=== PATIENT | female | born 1945 | race Caucasian/White ===

== ENCOUNTER 2019-12-26 05:16 | Observation (INO) ==
[2019-12-19 13:17] LABS: Appearance,Urine CLEAR; Bacteria,Urine 0 /hpf (0); Bilirubin,Urine NEG (NEG); Color,Urine YELLOW; Culture Indicated,Urine NO; Glucose,Urine (UA) NEGATIVE (NEG); Ketones,Urine NEG (NEG); Leukocyte Esterase,Urine NEG /uL (NEG); Nitrate,Urine NEG (NEG); Protein,Urine NEG (NEG); Specific Gravity,Urine 1.011 (1.000-1.035); Urine Blood 0.03 mg/dL (<0.03); Urine RBC < 1 /hpf (0-1); Urine Squamous Epithelial Cell 1 /hpf (0-4); Urine WBC 1 /hpf (0-4); Urobilinogen,Urine NEG (NEG)
[2019-12-19 14:28] LABS: Basophils # (Auto) 0.08 K/mcL (0.00-0.30); Basophils % (Auto) 0.7 % (0.0-2.0); Eosinophils # (Auto) 0.25 K/mcL (0.00-0.70); Eosinophils % (Auto) 2.1 % (0.0-7.0); Granulocytes % (Auto) 63.7 % (38.0-78.0); Hematocrit 41.6 % (34.1-44.9); Hemoglobin 13.7 g/dL (11.2-15.7); Lymphocytes # (Auto) 3.05 K/mcL (1.50-4.80); Lymphocytes % (Auto) 25.4 % (15.5-49.0); Mean Cell Volume 88.1 fL (80.0-100.0); Mean Corpuscular HGB Conc 32.9 g/dL (31.0-36.0); Mean Platelet Volume 10.3 fL (7.4-10.4); Monocytes # (Auto) 0.98 K/mcL (0.10-0.90); Monocytes % (Auto) 8.1 % (1.0-12.0); Platelet Count 342 K/mcL (140-440); RBC 4.72 M/mcL (3.59-5.38); Red Cell Distribution Width 12.8 % (11.5-14.5)
[2019-12-19 14:57] LABS: Prothrombin Time 13.2 sec (11.9-14.5)
[2019-12-19 15:51] LABS: Blood Urea Nitrogen 15 mg/dl (8-23); Calcium 9.3 mg/dl (8.6-10.4); Carbon Dioxide 23 mmol/L (22-30); Chloride 96 mmol/L (96-108); Glomerular Filtration Rate 73; Glucose 85 mg/dL (70-105)
[~2019-12-26 05:16] MED LIST: IPRATROPIUM/ALBUTEROL 3 ML AMPUL.NEB NEB PRN; SCOPOLAMINE 1 PATCH PATCH TOPICAL PRN
[2019-12-26] MEDS ORDERED: ceFAZolin 3 GM in DEXTROSE 5% IN WATER 50 ML IV SCH (06:00)
[2019-12-26] MEDS ORDERED: oxyCODONE 10 MG TAB.ER.12H PO SCH (06:00)
[2019-12-26] MEDS ORDERED: 0.9 % SODIUM CHLORIDE 9 ML, KETOROLAC 30 MG, ROPIVACAINE HCL/PF 49.5 ML, EPINEPHrine 0.... IJ SCH (06:00)
[2019-12-26] MEDS ORDERED: CELECOXIB 200 MG CAPSULE PO SCH (06:00)
[2019-12-26] MEDS ORDERED: PREGABALIN 75 MG CAPSULE PO SCH (06:00)
[2019-12-26] MEDS ORDERED: ACETAMINOPHEN 500 MG TABLET PO SCH (06:00)
[2019-12-26] MEDS ORDERED: KETAMINE 100 MG/ML ML IV ONE (07:36)
[2019-12-26] MEDS ORDERED: LIDOCAINE HCL/PF 100 MG/5 ML SYRINGE IV ONE (07:36)
[2019-12-26] MEDS ORDERED: ROPIVACAINE HCL/PF 30 ML VIAL IJ ONE (07:36)
[2019-12-26] MEDS ORDERED: TRANEXAMIC ACID 1,000 MG/10 ML VIAL IV ONE ×2 (07:36→09:04)
[2019-12-26] MEDS ORDERED: ONDANSETRON 4 MG/2 ML VIAL IV ONE (07:36)
[2019-12-26] MEDS ORDERED: GLYCOPYRROLATE 0.2 MG/ML VIAL IV ONE (07:36)
[2019-12-26] MEDS ORDERED: MIDAZOLAM 2 MG/2 ML VIAL IV ONE (07:36)
[2019-12-26] MEDS ORDERED: DEXAMETHASONE 10 MG/ML VIAL IV ONE (07:36)
[2019-12-26] MEDS ORDERED: PROPOFOL 200 MG/20 ML VIAL IV ONE (07:36)
[2019-12-26] MEDS ORDERED: SUCCINYLCHOLINE 20 MG/ML ML IV ONE (07:36)
[2019-12-26] MEDS ORDERED: GENTAMICIN SULFATE 800 MG/20 ML VIAL IR ONE (08:06)
[2019-12-26] MEDS ORDERED: IPRATROPIUM/ALBUTEROL 3 ML AMPUL.NEB NEB PRN (08:31)
[2019-12-26] MEDS ORDERED: fentaNYL 100 MCG/2 ML VIAL IV PRN (08:31)
[2019-12-26] MEDS ORDERED: METHOCARBAMOL 1,000 MG/10 ML VIAL IV PRN (08:31)
[2019-12-26] MEDS ORDERED: MEPERIDINE 25 MG/ML SYRINGE IV PRN (08:31)
[2019-12-26] MEDS ORDERED: LACTATED RINGERS 1,000 ML IV SCH (08:45)
[2019-12-26] MEDS ORDERED: ACETAMINOPHEN 325 MG TABLET PO PRN (09:04)
[2019-12-26] MEDS ORDERED: MAGNESIUM HYDROXIDE 30 ML ORAL.SUSP PO PRN (09:04)
[2019-12-26] MEDS ORDERED: POLYETHYLENE GLYCOL 3350 17 GM PACKET PO PRN (09:04)
[2019-12-26] MEDS ORDERED: BENZOCAINE/MENTHOL 1 LOZENGE PO PRN (09:04)
[2019-12-26] MEDS ORDERED: TEMAZEPAM 15 MG CAPSULE PO PRN (09:04)
[2019-12-26] MEDS ORDERED: FLEETS ADULT ENEMA PR PRN (09:04)
[2019-12-26] MEDS ORDERED: BISACODYL 10 MG SUPP.RECT PR PRN (09:04)
[2019-12-26] MEDS ORDERED: ONDANSETRON 4 MG/2 ML VIAL IV PRN (09:04)
--- NOTE | 2019-12-26 09:04 | Brief Operative Note ---
Brief Operative Note Date of procedure: 12/26/19 Pre-op diagnosis: right knee djd Post-op diagnosis: same Procedure: Right tka with odc Grafts/Implants: Yes (odc cemented) Anesthesia: GETA Complications: none Surgeon: Jordy Campbell Washer And Crusher Tender: Vince Issa Estimated blood loss (cc): 50.00 Tourniquet Time (Minutes): 45 Specimens Removed/Pathology: none sent Condition: stable Disposition: PACU
[2019-12-26] MEDS ORDERED: SERTRALINE 100 MG TABLET PO PRN (09:13)
[2019-12-26] MEDS ORDERED: HYDROcodone/APAP 10/325MG TABLET PO PRN (09:13)
[2019-12-26] MEDS ORDERED: KETOCONAZOLE 2% TOP CRM 15GM TUBE TOPICAL PRN (09:13)
[2019-12-26] MEDS ORDERED: FLUCONAZOLE 100 MG TABLET PO PRN (09:13)
--- NOTE | 2019-12-26 09:13 | Discharge Plan ---
Discharge Instructions - TKA Patient Instructions Total Knee Protocol: For Total Knee: Start ROM ELIZABETH with stationary bike or rocking chair. Work on gaining full extension of knee. Posterior dislocation precautions provided. Hip abductor strengthening and gait training instructions provided. Apply Cryocuff as instructed. Dressing Care: May shower in 2 days and Aquacel Ag - leave on for 5 days
[2019-12-26] MEDS ORDERED: MECLIZINE 25 MG TABLET PO PRN (09:21)
[2019-12-26] MEDS ORDERED: METRONIDAZOLE TOPICAL PRN (09:25)
--- NOTE | 2019-12-26 10:16 | Operative Note ---
DATE OF OPERATION: 12/26/2019 PREOPERATIVE DIAGNOSIS: Right knee degenerative arthritis, severe. POSTOPERATIVE DIAGNOSIS: Right knee degenerative arthritis, severe. PROCEDURE: Right total knee arthroplasty. SURGEON: Jordy Campbell M.D. FISHING VESSEL MATE: Vince Issa PA-C. The PA's assistance was required for the safe and efficient completion of the entire case. This provider's expertise and technical skill were required throughout the case. The PA assisted with preoperative coordination, intraoperative retraction, wound closure, dressing and splint application, as well as postoperative documentation and care coordination. ANESTHESIA: General LMA anesthesia. COMPLICATIONS: None. DESCRIPTION OF PROCEDURE: The patient was brought to the operating room and put to sleep with general LMA anesthesia. Once asleep, the patient had the right leg sterilely prepped and draped in the usual sterile fashion. A timeout was performed confirming this as the operative side by initials, consent form, and x-rays. Placing Ioban over the skin, we made a midline incision, midvastus approach. We subluxed the patella laterally. This showed severe arthritis through all three compartments. We then brought in the intramedullary guide flash, made our distal femoral cut at 5 degrees of valgus and 3 degrees of external rotation. We sized the knee to a size 4 and then made the bony cuts for the tibia, made the box cut, and trialed a size 4 tibial baseplate, size 4 femur with a 9 mm which was too tight. We went to a 7 mm poly liner which was the most appropriate. We irrigated thoroughly and then prepared the patella. It measured 22 mm in total thickness. This was cut to 14 mm and then placed a 35 mm patellar button. We irrigated thoroughly and cemented into place the above-mentioned sizes. Any excess cement was removed. A highly cross-linked polyethylene with E-poly with a tibial baseplate size 7, 35 mm E-poly highly cross-linked patella. Everything tracked well. The stability was excellent. We closed the midvastus approach with #1 Stratafix x2. We deflated the tourniquet at approximately 40 minutes. There were no complications. Blood loss was about 40 mL. RBH:kimani Job ID: [id number] Doc ID: [id number] Jordy Campbell MD
[2019-12-26] MEDS: LACTATED RINGERS 1,000 ML IV SCH ×2 (10:17→21:01)
--- NOTE | 2019-12-26 10:21 | XRay Report ---
HISTORY: Postop right knee replacement FINDINGS: There is a well-positioned right total knee prosthesis. There is a cluster of soft tissue calcifications superimposed over the joint space between the patella and femur on the lateral view. They are not clearly seen on the AP view. No fracture is present. IMPRESSION: Well-positioned right knee prosthesis Interpreted and Authenticated by: Narayan Lind 12/26/19
[2019-12-26] MEDS: KETOROLAC 15 MG/ML VIAL IV SCH ×3 (11:10→23:23)
[2019-12-26] MEDS: oxyCODONE/APAP 5/325MG TABLET PO PRN (11:15)
[2019-12-26] MEDS: HYDROmorphone 1 MG/ML SYRINGE IV ONE ×2 (11:38→12:29)
[2019-12-26] MEDS: 0.9 % SODIUM CHLORIDE 10 ML SYRINGE IV SCH ×2 (12:03→21:04)
[2019-12-26] MEDS: ceFAZolin 1 GM VIAL IV SCH ×2 (14:54→22:43)
[2019-12-26] MEDS: HYDROcodone/APAP 10/325MG TABLET PO PRN ×3 (15:00→22:34)
[2019-12-26] MEDS: BUTALB/ACETAMINOPHEN/CAFFEINE 1 TABLET PO PRN ×2 (15:40→22:37)
[2019-12-26] MEDS: HYDROmorphone 1 MG/ML SYRINGE IV PRN (19:55)
[2019-12-26] MEDS ORDERED: HYDROmorphone 1 MG/ML SYRINGE ONE (19:58)
[2019-12-26] MEDS: SENNOSIDES 1 TABLET PO SCH (21:03)
[2019-12-26] MEDS: ARIPIPRAZOLE 5 MG TABLET PO SCH (21:03)
[2019-12-26] MEDS: OXYBUTYNIN CHLORIDE 5 MG TAB.XL.24H PO SCH (21:03)
[2019-12-26] MEDS: NORTRIPTYLINE 25 MG CAPSULE PO SCH (21:03)
[2019-12-26] MEDS: OMEPRAZOLE 20 MG CAPSULE PO SCH (21:04)
[2019-12-26] MEDS: ASPIRIN 325 MG ENTERIC COATED TABLET PO SCH (21:04)
[2019-12-26] MEDS: DOCUSATE SODIUM 100 MG CAPSULE PO SCH (21:04)
[2019-12-26] MEDS: ZOLPIDEM 5 MG TABLET PO PRN (22:33)
[2019-12-27] MEDS: HYDROcodone/APAP 10/325MG TABLET PO PRN ×3 (02:18→12:26)
[2019-12-27] MEDS: LORazepam 1 MG TABLET PO PRN ×3 (02:18→19:50)
[2019-12-27] MEDS: KETOROLAC 15 MG/ML VIAL IV SCH ×4 (06:03→23:46)
[2019-12-27] MEDS: 0.9 % SODIUM CHLORIDE 10 ML SYRINGE IV SCH ×3 (06:04→19:55)
[2019-12-27] MEDS: LACTATED RINGERS 1,000 ML IV SCH ×2 (06:04→17:50)
[2019-12-27] MEDS ORDERED: ASPIRIN 81 MG TAB.CHEW PO SCH (09:00)
[2019-12-27] MEDS: LEVOTHYROXINE 150 MCG TABLET PO SCH (09:01)
[2019-12-27] MEDS: ASPIRIN 325 MG ENTERIC COATED TABLET PO SCH ×2 (09:01→19:51)
[2019-12-27] MEDS: MULTIVIT,THER IRON,CA,FA & MIN 1 TABLET PO SCH (09:01)
[2019-12-27] MEDS: DOCUSATE SODIUM 100 MG CAPSULE PO SCH ×2 (09:02→19:51)
[2019-12-27] MEDS: HYDROmorphone 1 MG/ML SYRINGE IV PRN (14:32)
[2019-12-27] MEDS: oxyCODONE/APAP 5/325MG TABLET PO PRN ×2 (15:56→19:51)
[2019-12-27] MEDS: NORTRIPTYLINE 25 MG CAPSULE PO SCH (19:49)
[2019-12-27] MEDS: ARIPIPRAZOLE 5 MG TABLET PO SCH (19:49)
[2019-12-27] MEDS: SENNOSIDES 1 TABLET PO SCH (19:50)
[2019-12-27] MEDS: OXYBUTYNIN CHLORIDE 5 MG TAB.XL.24H PO SCH (19:50)
[2019-12-27] MEDS: ZOLPIDEM 5 MG TABLET PO PRN (19:50)
[2019-12-27] MEDS: OMEPRAZOLE 20 MG CAPSULE PO SCH (19:51)
[2019-12-27] MEDS: BUTALB/ACETAMINOPHEN/CAFFEINE 1 TABLET PO PRN (21:14)
[2019-12-28] MEDS: oxyCODONE/APAP 5/325MG TABLET PO PRN ×4 (00:07→12:56)
[2019-12-28] MEDS: LACTATED RINGERS 1,000 ML IV SCH ×2 (02:48→11:44)
[2019-12-28] MEDS: 0.9 % SODIUM CHLORIDE 10 ML SYRINGE IV SCH (05:40)
[2019-12-28] MEDS: KETOROLAC 15 MG/ML VIAL IV SCH (05:42)
[2019-12-28] MEDS: LEVOTHYROXINE 150 MCG TABLET PO SCH (07:50)
[2019-12-28] MEDS: DOCUSATE SODIUM 100 MG CAPSULE PO SCH (09:12)
[2019-12-28] MEDS: ASPIRIN 325 MG ENTERIC COATED TABLET PO SCH (09:12)
[2019-12-28] MEDS: MULTIVIT,THER IRON,CA,FA & MIN 1 TABLET PO SCH (09:12)
== END 2019-12-28 13:25 | disposition home or self-care (01) ==
LOC: SUR 05:16 → MEDSUR 05:16
PROVIDERS: ADMIT Orthopaedic Surgery; ATTEND Orthopaedic Surgery